=== PATIENT | female | born 1965 | race Caucasian/White ===

== ENCOUNTER 2024-03-24 06:41 | Day surgery (SDC) | payer MEDICARE, MEDICAID ==
[2024-03-24] VITALS (8 sets, daily range): BP systolic 109–131; BP diastolic 62–86; PULSE 58–74; TEMP 98.2
[~2024-03-24] VITALS: Ht 160.1 cm; Wt 83.0 kg
[~2024-03-24 06:41] MED LIST: ALLERGY RELIEF10 M1 PO; BIO-CEF500 MG PO; CLINDAGEL TP; MIRALAX119G; PRILOSEC 20MG20 MG PO; SINGULAIR10 MG PO; ZETIA 10MG TAB10 MG PO; ZOCOR 80MG80 MG PO
[2024-03-24] MEDS ORDERED: 1/2 NS 1,000 ML IV SCH (07:30)
[2024-03-24] MEDS ORDERED: PRIL40 PO (08:08)
[2024-03-24 08:11] LABS: HEMATOCRIT 40.2 % (37.0-47.0); HEMOGLOBIN 13.6 g/dl (12.5-16.0); MEAN CELL VOLUME 91 fl (80.0-100.0); MEAN CORPUSCULAR HEMOGLOBIN 31 pg (27-31); MEAN CORPUSCULAR HGB CONC 34 g/dl (33.0-37.0); MEAN PLATELET VOLUME 11.1 fl (7.4-10.4); PLATELET COUNT 176 K/mm3 (130-400); RED BLOOD COUNT 4.42 M/mm3 (4.10-5.30); REDCELL DISTRIBUTION WIDTH-CV 13.8 % (11.5-14.5)
[2024-03-24] MEDS ORDERED: VALTREX 50500 MG/TAB PO (08:11)
[2024-03-24] MEDS ORDERED: CRESTOR40 MG PO (08:11)
[2024-03-24] MEDS ORDERED: ZYRTEC 10MG10 MG PO (08:13)
[2024-03-24] MEDS ORDERED: ZESTRIL 10MG10 MG PO (08:13)
[2024-03-24] MEDS ORDERED: AMBIEN CR 12.12.5 MG PO (08:14)
[2024-03-24] MEDS ORDERED: ASPIRIN E.C. 8181 MG PO (08:14)
[2024-03-24] MEDS ORDERED: TOPROL XL 25MG25 MG PO (08:15)
[2024-03-24] MEDS ORDERED: ATIVAN 1MG T1 MG/TAB PO (08:15)
[2024-03-24 08:20] LABS: INR 1.1 (0.8-3.0); PROTHROMBIN TIME 11.5 SECONDS (9.7-12.8)
[2024-03-24 08:24] LABS: CALCIUM 9.5 mg/dL (8.4-10.2); CREATININE, serum 0.72 mg/dL (0.57-1.11); POTASSIUM 4.3 mEq/L (3.5-4.5)
[2024-03-24] MEDS ORDERED: Heparin 1,000 UNITS/ML 10 ML Multi-Dose VIAL IA SCH (09:23)
[2024-03-24] MEDS ORDERED: Nitroglycerin 100 MCG/ML (Cath Lab) 10 ML VIAL IA SCH (09:28)
[2024-03-24] MEDS ORDERED: Verapamil 2.5 MG/ML 2 ML VIAL IA SCH (09:34)
[2024-03-24] MEDS ORDERED: Iohexol 350 - 100 ML VIAL INCOR ONE (09:40)
[2024-03-24] MEDS ORDERED: Heparin 1,000 UNITS/ML 10 ML Multi-Dose VIAL IV SCH (09:41)
[2024-03-24] MEDS ORDERED: Midazolam 2 MG/2 ML VIAL IV SCH (09:41)
[2024-03-24] MEDS ORDERED: fentaNYL 50 MCG/ML 2 ML VIAL IV SCH (09:42)
--- NOTE | 2024-03-24 09:50 | NUR ---
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 pt on tele, VSS. takes water. radial site is without bleeding and swelling, call light in reach
--- NOTE | 2024-03-24 10:05 | NUR ---
Yanet was transferred back to express unit rm [address] Lin. TR band to rt wrist, cms intact distal. 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 She verbalized understanding and asked to put some cream on now. Pt is hooked up for post procedure vitals. BS report and handoff of care to Amairani HASTINGS.
--- NOTE | 2024-03-24 11:00 | NUR ---
pt ordered lunch, daughter in room, no c/o
--- NOTE | 2024-03-24 12:00 | NUR ---
released band 2cc over 20 min with no bleeding, swelling at site, bandaid over site, wrapped in coban for support, pt sits on side of bed, tolerates well. Dr Lin into talk with pt after procedure with daughter there. iv d'cd intact. pt walked to b/r, tolerated well
--- NOTE | 2024-03-24 12:30 | NUR ---
reviewed discharge inst. with pt and daughter with care of site, medication list reviewed, followup appt and activity level with verbal understanding. int d'cd intact, pt and daughter wait on ride in room, discharged at 1250 via w/c to van with daughter
== END 2024-03-24 12:50 | disposition home or self-care (01) ==
LOC: COL.CAR 06:41
PROVIDERS: Internal Medicine Cardiovascular Disease
DX: R07.9 Chest pain, unspecified (principal); I10 Essential (primary) hypertension; E78.5 Hyperlipidemia, unspecified; I35.1 Nonrheumatic aortic (valve) insufficiency; I34.0 Nonrheumatic mitral (valve) insufficiency; Z87.891 Personal history of nicotine dependence
CPT/HCPCS: C1769; J1644; J2250; J3010; Q9967